=== PATIENT | female | born 1955 | race Caucasian/White ===

== ENCOUNTER 2019-12-26 18:21 | Emergency (ER) | payer OTHER, SELFPAY ==
[2019-12-26 20:18] LABS: Bacteria/HPF None Seen HPF (None Seen); Bilirubin Negative (Negative); Blood, Urine 1+ (Negative); Clarity Clear (Clear); Glucose, Urine (Dipstick) Normal (Negative); Leukocyte 250 Leu/uL (Negative); Nitrite Negative (Negative); Protein, Urine (Dipstick) 20 mg/dL (Neg-Trace); Urobilinogen Normal mg/dL (Less than 2)
[2019-12-26] MEDS ORDERED: Ondansetron PF 4 MG/2 ML Vial ONE (21:17)
[2019-12-26] MEDS ORDERED: Ketorolac Tromethamine 30 MG/ML VIAL ONE (21:17)
[2019-12-26] MEDS ORDERED: cefTRIAXone\\ROCEPHIN 1 GM VIAL ONE (21:17)
--- NOTE | 2019-12-26 21:43 | CT ---
CT Stone Protocol 12/26/2019 12:00 AM HISTORY: Back pain which is gradually getting worse. Hematuria and nausea. COMPARISON: None. Technique: Multiple contiguous axial CT images are obtained through the abdomen and pelvis without IV contrast. Coronal reformats are provided. FINDINGS: This examination is limited for the evaluation of solid organs and vascular structures due to the lac k of intravenous contrast. Lower Chest: Dependent bibasilar atelectasis is present. Abdomen: Liver: A 1.8 cm hypodense lesion is seen in the right hepatic lobe which cannot be characterized as a cyst. Follow-up nonemergent CT abdomen with three-phase imaging of the liver is recommended for further evaluation characterization. Gallbladder: Surgically absent. Pancreas: Grossly normal nonenhanced CT appearance. Spleen: Grossly normal nonenhanced CT appearance. Adrenals: Grossly normal nonenhanced CT appearance. Kidneys: Suggestion of a subtle subcentimeter hypodense lesion midportion right kidney. Kidneys other alfaro demonstrate a grossly normal nonenhanced CT appearance, and no renal calculi are seen bilaterally, and there is no hydronephrosis. Ureters: No ureteral calculus is seen.. Pelvis: Urinary bladder: Partially distended and grossly normal in appearance. Reproductive Organs: Evidence of hysterectomy. Lymph Nodes: No enlarged lymph nodes. Bowel: Colonic diverticulosis is present with small amount retained fecal material seen throughout th e colon. Loops of small bowel are normal in caliber. Appendix: Not visualized, but there are no secondary signs to suggest appendicitis. Peritoneum: No free fluid, free air, or fluid collection. Retroperitoneum: within normal limits. Vessels: Vascular calcifications are seen in the abdominal aorta and iliac arteries.. Abdominal Wall: within normal limits. Bones: Degenerative changes are seen in the spine. Prominent Schmorl's nodes are seen at the T11-12 l evel and the inferior endplate of the L4 vertebral body. IMPRESSION: 1. Hypodense lesion right hepatic lobe which cannot be characterized as a cyst. A nonemergent CT abdo men with IV contrast following the hepatic mass protocol is recommended for further evaluation. 2. Question of subcentimeter hypodense right renal lesion. This can also be reevaluated on follow-up examination. 3. Cholecystectomy and hysterectomy. 4. Colonic diverticulosis. 5. No renal or ureteral calculi are seen bilaterally, and there is no hydronephrosis.
[2019-12-26 22:13] LABS: #Basophils 0.1 thou/uL (0.0-0.2); #Eosinphils 0.3 thou/uL (0.0-0.7); #Monocytes 0.6 thou/uL (0.11-0.59); #Neutrophils 6.3 thou/uL (1.40-6.50); %Basophils 0.9 % (0.0-1.0); %Eosinophils 2.5 % (0.0-10.0); %Lymphocytes 29.3 % (21.0-51.0); %Monocytes 6.2 % (0.0-10.0); %Neutrophils 61.1 % (42.0-75.0); Hemoglobin 13.5 g/dL (12.0-16.0); Mean Corpuscular HGB CONC 33.9 g/dL (32.0-36.0); Mean Corpuscular Hemoglobin 29.3 pg (27.0-31.0); Mean Corpuscular Volume 86.5 fL (78.0-98.0); Mean Platelet Volume 6.5 fL (7.4-10.4); Platelet Count 219 thou/uL (130-400); RBC Distribution Width 12.4 % (11.5-14.5); Red Blood Cell (RBC) Count 4.61 mill/uL (4.20-5.40); White Blood Cell (WBC) Count 10.2 thou/uL (4.8-10.8)
[2019-12-26 22:34] LABS: ALT (SGPT) 33 U/L (8-55); AST (SGOT) 19 U/L (5-34); Albumin 4.4 g/dL (3.4-4.8); Alkaline Phosphatase 86 U/L (40-110); Anion Gap 12 mmol/L (10-20); BUN (Urea Nitrogen) 19 mg/dL (9.8-20.1); Bilirubin, Total 0.3 mg/dL (0.2-1.2); Calc. Creatinine Clearance 0 mL/min (70-130); Calcium 9.1 mg/dL (7.8-10.44); Carbon Dioxide 26 mmol/L (23-31); Chloride 106 mmol/L (98-107); Estimated GFR-MDRD 74; Globulin 2.4 g/dL (2.4-3.5); Glucose 90 mg/dL (80-115); Lipase 11 U/L (8-78); Potassium 3.7 mmol/L (3.5-5.1); Protein, Total 6.8 g/dL (6.0-8.3); Sodium 140 mmol/L (136-145)
[2019-12-26] MEDS ORDERED: Morphine 4 MG/ML VIAL ONE (22:34)
== END 2019-12-26 22:57 | disposition home or self-care (01) ==
LOC: ERS 18:21
DX: R16.0 Hepatomegaly, not elsewhere classified (principal); N39.0 Urinary tract infection, site not specified; R11.0 Nausea; I10 Essential (primary) hypertension; Z79.899 Other long term (current) drug therapy
CPT/HCPCS: 36415; 74176; 80053; 81003; 81015; 83690; 85025; 87086; 96361; 96365; 96375; J0696; J1885; J2270; J2405

== ENCOUNTER 2019-12-31 14:21 | Emergency (ER) | payer OTHER, SELFPAY ==
[2019-12-31 20:59] LABS: Bilirubin Negative (Negative); Blood, Urine Negative (Negative); Clarity Clear (Clear); Glucose, Urine (Dipstick) Normal (Negative); Leukocyte Negative Leu/uL (Negative); Nitrite Negative (Negative); Protein, Urine (Dipstick) Negative (Neg-Trace); Urobilinogen Normal mg/dL (Less than 2)
[2019-12-31] MEDS ORDERED: Fentanyl 100 MCG/2 ML VIAL ONE (21:05)
[2019-12-31 21:16] LABS: #Basophils 0.1 thou/uL (0.0-0.2); #Eosinphils 0.2 thou/uL (0.0-0.7); #Lymphocytes 2.8 thou/uL (1.20-3.40); #Monocytes 0.4 thou/uL (0.11-0.59); #Neutrophils 5.5 thou/uL (1.40-6.50); %Basophils 0.9 % (0.0-1.0); %Eosinophils 2.1 % (0.0-10.0); %Lymphocytes 31.3 % (21.0-51.0); %Monocytes 4.3 % (0.0-10.0); %Neutrophils 61.5 % (42.0-75.0); Hemoglobin 15.2 g/dL (12.0-16.0); Mean Corpuscular HGB CONC 33.6 g/dL (32.0-36.0); Mean Corpuscular Hemoglobin 29.1 pg (27.0-31.0); Mean Corpuscular Volume 86.6 fL (78.0-98.0); Mean Platelet Volume 6.4 fL (7.4-10.4); Platelet Count 271 thou/uL (130-400); RBC Distribution Width 12.4 % (11.5-14.5)
[2019-12-31 21:39] LABS: ALT (SGPT) 30 U/L (8-55); AST (SGOT) 19 U/L (5-34); Albumin 5.4 g/dL (3.4-4.8); Alkaline Phosphatase 94 U/L (40-110); Anion Gap 13 mmol/L (10-20); BUN (Urea Nitrogen) 20 mg/dL (9.8-20.1); Bilirubin, Total 0.5 mg/dL (0.2-1.2); Calc. Creatinine Clearance 0 mL/min (70-130); Calcium 10.2 mg/dL (7.8-10.44); Carbon Dioxide 28 mmol/L (23-31); Chloride 102 mmol/L (98-107); Estimated GFR-MDRD 63; Globulin 2.9 g/dL (2.4-3.5); Glucose 94 mg/dL (80-115); Potassium 3.9 mmol/L (3.5-5.1); Protein, Total 8.3 g/dL (6.0-8.3); Sodium 139 mmol/L (136-145)
== END 2019-12-31 22:38 | disposition home or self-care (01) ==
LOC: ERS 14:21
DX: M54.9 Dorsalgia, unspecified (principal); I10 Essential (primary) hypertension; M19.90 Unspecified osteoarthritis, unspecified site; E03.9 Hypothyroidism, unspecified; M06.9 Rheumatoid arthritis, unspecified; Z79.899 Other long term (current) drug therapy
CPT/HCPCS: 80053; 81003; 85025; 96361; 96374; J3010

== ENCOUNTER 2021-04-30 15:12 | Inpatient (IN) | payer MEDICARE ==
[2021-04-30 16:12] LABS: #Eosinphils 0.2 thou/uL (0.0-0.7); #Lymphocytes 2.5 thou/uL (1.20-3.40); #Monocytes 0.5 thou/uL (0.11-0.59); #Neutrophils 5.2 thou/uL (1.40-6.50); %Basophils 0.2 % (0.0-1.0); %Eosinophils 2.9 % (0.0-10.0); %Lymphocytes 29.7 % (21.0-51.0); %Monocytes 5.6 % (0.0-10.0); %Neutrophils 61.6 % (42.0-75.0); Hemoglobin 12.8 g/dL (12.0-16.0); Mean Corpuscular HGB CONC 35.7 g/dL (32.0-36.0); Mean Corpuscular Hemoglobin 31.7 pg (27.0-31.0); Mean Corpuscular Volume 88.8 fL (78.0-98.0); Mean Platelet Volume 6.5 fL (7.4-10.4); Platelet Count 233 thou/uL (130-400); RBC Distribution Width 11.8 % (11.5-14.5); Red Blood Cell (RBC) Count 4.04 mill/uL (4.20-5.40); White Blood Cell (WBC) Count 8.5 thou/uL (4.8-10.8)
[2021-04-30 16:36] LABS: ALT (SGPT) 82 U/L (8-55); AST (SGOT) 53 U/L (5-34); Albumin 4.1 g/dL (3.4-4.8); Alkaline Phosphatase 70 U/L (40-110); Anion Gap 12 mmol/L (10-20); BUN (Urea Nitrogen) 11 mg/dL (9.8-20.1); Bilirubin, Total 0.3 mg/dL (0.2-1.2); Calc. Creatinine Clearance 0 mL/min (70-130); Calcium 9.1 mg/dL (7.8-10.44); Carbon Dioxide 24 mmol/L (23-31); Chloride 106 mmol/L (98-107); Globulin 2.9 g/dL (2.4-3.5); Glucose 97 mg/dL (80-115); Potassium 3.9 mmol/L (3.5-5.1); Sodium 138 mmol/L (136-145)
[2021-04-30 19:19] LABS: Bilirubin Negative (Negative); Blood, Urine Negative (Negative); Clarity Clear (Clear); Glucose, Urine (Dipstick) Normal (Negative); Ketone, Urine Negative (Negative); Leukocyte Negative Leu/uL (Negative); Nitrite Negative (Negative); Protein, Urine (Dipstick) Negative (Neg-Trace); Specific Gravity, Urine 1.006 (1.002-1.036); Urobilinogen Normal mg/dL (Less than 2); pH, Urine 6.5 (5.0-9.0)
[2021-04-30 19:54] LABS: Prothrombin Time 12.6 sec (12.0-14.7)
[2021-04-30 19:55] LABS: PTT 35.8 sec (22.9-36.1)
[2021-04-30] MEDS ORDERED: Aspirin Chewable 81 MG TAB ONE (20:53)
[2021-05-01] MEDS ORDERED: Meclizine HCl 25 MG TAB PO PRN (02:48)
[2021-05-01] MEDS ORDERED: Fioricet 325/50/40 mg Tablet PO PRN (02:48)
[2021-05-01] MEDS ORDERED: Ondansetron PF 4 MG/2 ML Vial IVP PRN (02:49)
[2021-05-01 04:45] LABS: #Eosinphils 0.3 thou/uL (0.0-0.7); #Lymphocytes 2.8 thou/uL (1.20-3.40); #Monocytes 0.4 thou/uL (0.11-0.59); #Neutrophils 4.8 thou/uL (1.40-6.50); %Basophils 0.5 % (0.0-1.0); %Eosinophils 3.2 % (0.0-10.0); %Lymphocytes 33.8 % (21.0-51.0); %Monocytes 5.2 % (0.0-10.0); %Neutrophils 57.2 % (42.0-75.0); Mean Corpuscular HGB CONC 35.5 g/dL (32.0-36.0); Mean Corpuscular Hemoglobin 31.6 pg (27.0-31.0); Mean Corpuscular Volume 89.1 fL (78.0-98.0); Mean Platelet Volume 6.4 fL (7.4-10.4); Platelet Count 216 thou/uL (130-400); RBC Distribution Width 11.7 % (11.5-14.5); Red Blood Cell (RBC) Count 3.79 mill/uL (4.20-5.40); White Blood Cell (WBC) Count 8.4 thou/uL (4.8-10.8)
[2021-05-01 05:06] LABS: Anion Gap 10 mmol/L (10-20); BUN (Urea Nitrogen) 14 mg/dL (9.8-20.1); Calc. Creatinine Clearance 79 mL/min (70-130); Carbon Dioxide 27 mmol/L (23-31); Cardiac Risk 5.1 (Less than 4.5); Chloride 108 mmol/L (98-107); Cholesterol 168 mg/dl (< 200 Desired); Glucose 92 mg/dL (80-115); HDL Cholesterol 33 mg/dL (>60 Neg Risk); LDL Cholesterol, Calculated 62 mg/dL; Potassium 4.1 mmol/L (3.5-5.1); Sodium 141 mmol/L (136-145); Triglycerides 363 mg/dL (Less than 150)
[2021-05-01] MEDS ORDERED: Acetaminophen 325 MG TAB PO PRN (06:56)
[2021-05-01] MEDS ORDERED: Aspirin 81 mg Enteric Coated Tablet ONE (08:54)
[2021-05-01] MEDS: Aspirin 81 mg Enteric Coated Tablet PO SCH (09:17)
[2021-05-01] MEDS ORDERED: Enoxaparin Sodium 40 MG/0.4 ML SYRINGE SC SCH (12:00)
[2021-05-01] MEDS ORDERED: Enoxaparin Sodium 40 MG/0.4 ML SYRINGE ONE (14:27)
[2021-05-01] MEDS ORDERED: Acetaminophen 325 MG TAB ONE (14:27)
[2021-05-01 15:30] VITALS: BMI 32.3
[2021-05-01] MEDS ORDERED: DULoxetine 30 MG CAP PO SCH (21:00)
[2021-05-01] MEDS ORDERED: Simvastatin 5 MG TAB PO SCH (21:00)
[2021-05-01] MEDS: Pregabalin 50 MG CAP PO SCH (21:34)
[2021-05-02] MEDS ORDERED: Levothyroxine 150 MCG TAB PO SCH (06:00)
[2021-05-02] MEDS ORDERED: NALTREXONE HCL 4.5 MG PO SCH (09:00)
[2021-05-02] MEDS ORDERED: Enoxaparin Sodium 40 MG/0.4 ML SYRINGE SC SCH (09:00)
[2021-05-02] MEDS: Pregabalin 50 MG CAP PO SCH (09:34)
[2021-05-02] MEDS: Aspirin 81 mg Enteric Coated Tablet PO SCH (09:34)
[2021-05-02] MEDS ORDERED: Ketorolac Tromethamine 30 MG/ML VIAL IVP SCH (10:45)
[2021-05-02 11:37] VITALS: TEMP 97.9
[2021-05-02 12:13] VITALS: BP 119/68
== END 2021-05-02 15:50 | disposition home or self-care (01) | DRG 69 ==
LOC: ERS 15:12 → 2SE 21:08 → ERHOLD 21:15 → 2SE 05-01 15:00 → OBSVTOIN 05-01 17:14
PROVIDERS: ADMIT Student in an Organized Health Care Education/Training Program; ATTEND Internal Medicine
DX: G45.9 Transient cerebral ischemic attack, unspecified (principal); K50.90 Crohn's disease, unspecified, without complications; I10 Essential (primary) hypertension; M06.9 Rheumatoid arthritis, unspecified; E03.9 Hypothyroidism, unspecified; M79.7 Fibromyalgia; Z88.5 Allergy status to narcotic agent; Z88.8 Allergy status to other drugs, medicaments and biological substances; Z90.49 Acquired absence of other specified parts of digestive tract; Z90.710 Acquired absence of both cervix and uterus; Z87.891 Personal history of nicotine dependence; Z83.6 Family history of other diseases of the respiratory system; Z82.49 Family history of ischemic heart disease and other diseases of the circulatory system; Z82.3 Family history of stroke; Z80.8 Family history of malignant neoplasm of other organs or systems
CPT/HCPCS: 36415; 70450; 70551; 71045; 80048; 80053; 80061; 81003; 82550; 84484; 85025; 85610; 85730; 93005; G0378; J1650; J1885

== ENCOUNTER 2022-11-11 13:07 | Outpatient (CLI) | payer MEDICARE ==
[2022-11-11] MEDS ORDERED: Iopamidol-370 76% 500 ML 1 ML ONE (15:13)
== END 2022-11-11 13:08 | disposition home or self-care (01) ==
LOC: BICCT 13:07
PROVIDERS: ATTEND Family Medicine
DX: R16.0 Hepatomegaly, not elsewhere classified (principal); K76.89 Other specified diseases of liver
CPT/HCPCS: 74170; 82565; Q9967

== ENCOUNTER 2023-11-18 18:34 | Observation (INO) | payer MEDICARE ==
[2023-11-18 22:33] VITALS: BMI 30.1
[2023-11-18] MEDS ORDERED: Acetaminophen 325 MG TAB PO PRN (22:43)
[2023-11-18] MEDS ORDERED: Morphine 2 MG/ML VIAL SLOW IVP PRN (22:43)
[2023-11-18] MEDS ORDERED: Morphine 4 MG/ML VIAL SLOW IVP PRN (22:43)
[2023-11-18] MEDS ORDERED: Acetaminophen 650 MG Suppository PR PRN (22:43)
[2023-11-18] MEDS ORDERED: Baclofen 10 MG TAB PO SCH (22:45)
[2023-11-18] MEDS ORDERED: Atorvastatin Calcium 40 MG TAB PO SCH (23:15)
[2023-11-19 04:57] LABS: #Basophils 0.1 thou/uL (0.0-0.2); #Eosinphils 0.2 thou/uL (0.0-0.7); #Monocytes 0.6 thou/uL (0.11-0.59); #Neutrophils 6.3 thou/uL (1.40-6.50); %Basophils 0.4 % (0.0-1.0); %Eosinophils 1.7 % (0.0-10.0); %Lymphocytes 37.3 % (21.0-51.0); %Monocytes 5.2 % (0.0-10.0); %Neutrophils 53.7 % (42.0-75.0); Hematocrit 37.3 % (36.0-47.0); Hemoglobin 12.4 g/dL (12.0-16.0); Mean Corpuscular HGB CONC 33.2 g/dL (32.0-36.0); Mean Corpuscular Hemoglobin 29.6 pg (27.0-31.0); Mean Platelet Volume 9.1 fL (7.4-10.4); Platelet Count 207 10x3/uL (130-400); Red Blood Cell (RBC) Count 4.19 mill/uL (4.20-5.40); White Blood Cell (WBC) Count 11.7 10x3/uL (4.8-10.8)
[2023-11-19 05:21] LABS: Anion Gap 17 mmol/L (10-20); BUN (Urea Nitrogen) 25 mg/dL (9.8-20.1); Calc. Creatinine Clearance 79 mL/min (70-130); Calcium 8.6 mg/dL (7.8-10.44); Carbon Dioxide 19 mmol/L (23-31); Chloride 109 mmol/L (98-107); Estimated GFR 67; Glucose 82 mg/dL (80-115); Potassium 3.7 mmol/L (3.5-5.1); Sodium 141 mmol/L (136-145)
[2023-11-19] MEDS: Levothyroxine 150 MCG TAB PO SCH (06:24)
[2023-11-19] MEDS: Aspirin 81 mg Enteric Coated Tablet PO SCH (09:49)
[2023-11-19] MEDS: Enoxaparin 80 MG (0.8 mL) SYRINGE SC SCH ×2 (09:49→20:32)
[2023-11-19 10:41] LABS: Troponin I Less than 0.010 ng/mL (< 0.028)
[2023-11-19 13:45] LABS: Troponin I Less than 0.010 ng/mL (< 0.028)
[2023-11-19] MEDS ORDERED: ADENOSINE 60 MG/20 ML SDV ONE (13:54)
[2023-11-19] MEDS ORDERED: Pregabalin 50 MG CAP PO SCH (21:00)
[2023-11-19] MEDS ORDERED: Baclofen 10 MG TAB PO SCH (21:00)
[2023-11-19] MEDS ORDERED: Amitriptyline HCl 25 MG TAB PO SCH (21:00)
[2023-11-19] MEDS ORDERED: Famotidine 20 MG TAB PO SCH (21:00)
[2023-11-19] MEDS ORDERED: Atorvastatin Calcium 40 MG TAB PO SCH (21:00)
[2023-11-20 05:31] LABS: Anion Gap 10 mmol/L (10-20); BUN (Urea Nitrogen) 15 mg/dL (9.8-20.1); Calc. Creatinine Clearance 81 mL/min (70-130); Calcium 8.8 mg/dL (7.8-10.44); Carbon Dioxide 26 mmol/L (23-31); Chloride 107 mmol/L (98-107); Estimated GFR 69; Glucose 89 mg/dL (80-115); Magnesium 2.1 mg/dL (1.6-2.6); Sodium 139 mmol/L (136-145); Troponin I Less than 0.010 ng/mL (< 0.028)
[2023-11-20] MEDS: Levothyroxine 150 MCG TAB PO SCH (07:53)
[2023-11-20] MEDS ORDERED: NALTREXONE HCL 4.5 MG PO SCH (09:00)
[2023-11-20] MEDS ORDERED: MESALAMINE 0.375 GM PO SCH (09:00)
[2023-11-20] MEDS: Aspirin 81 mg Enteric Coated Tablet PO SCH (10:00)
[2023-11-20 12:40] VITALS: BP 138/69; TEMP 98.5
== END 2023-11-20 12:57 | disposition home or self-care (01) ==
LOC: 2NO 18:34
PROVIDERS: ADMIT Family Medicine; ATTEND Internal Medicine
DX: R07.9 Chest pain, unspecified (principal); E78.00 Pure hypercholesterolemia, unspecified; K50.90 Crohn's disease, unspecified, without complications; E03.9 Hypothyroidism, unspecified; K21.9 Gastro-esophageal reflux disease without esophagitis; M19.90 Unspecified osteoarthritis, unspecified site; I10 Essential (primary) hypertension; M81.0 Age-related osteoporosis without current pathological fracture; G43.909 Migraine, unspecified, not intractable, without status migrainosus; G89.4 Chronic pain syndrome; M79.7 Fibromyalgia; R91.1 Solitary pulmonary nodule; Z98.890 Other specified postprocedural states; Z90.710 Acquired absence of both cervix and uterus; Z88.5 Allergy status to narcotic agent; Z88.8 Allergy status to other drugs, medicaments and biological substances; Z79.899 Other long term (current) drug therapy; Z79.890 Hormone replacement therapy; Z87.891 Personal history of nicotine dependence; Z91.018 Allergy to other foods
CPT/HCPCS: 78452; 80048 ×2; 83735; 84484 ×3; 85025; 85379; 93005; 93017; 96372; A9502; G0378 ×3; 36415; 93010; J0153; J1650

== ENCOUNTER 2024-04-04 08:21 | Outpatient (CLI) | payer MEDICARE ==
[2024-04-04] MEDS ORDERED: Glucagon 1 MG/ML KIT ONE (09:43)
[2024-04-04] MEDS ORDERED: Magnevist 469MG/ML 20 ML VIAL ONE (12:36)
== END 2024-04-04 08:22 | disposition home or self-care (01) ==
LOC: MRI 08:21
PROVIDERS: ATTEND Physician Assistant Medical
DX: K50.90 Crohn's disease, unspecified, without complications (principal); K21.9 Gastro-esophageal reflux disease without esophagitis; D18.03 Hemangioma of intra-abdominal structures; R93.3 Abnormal findings on diagnostic imaging of other parts of digestive tract
CPT/HCPCS: 74183; J1611; A9579